=== PATIENT | male | born 1980 | race Caucasian/White ===

== ENCOUNTER 2020-12-30 11:26 | Emergency (ER) | payer OTHER ==
[~2020-12-30] VITALS: Ht 177.8 cm; Wt 81.6 kg
--- NOTE | 2020-12-30 11:52 | NUR ---
"I want to go [place] but I was told to come here. Im Having a lot of Anxiety and Panic Attacks", to ER bed 13, hooked to monitor, changed to hosp gown, warm blanket provided. awaiting MD francis. sitter at bedside for safety
--- NOTE | 2020-12-30 11:55 | NUR ---
Dr Kwon at bedside
[2020-12-30 12:27] LABS: BASOPHILS # (AUTO) 0.2 /CMM (0.0-0.2); BASOPHILS % (AUTO) 2.7 % (0.0-2.0); EOSINOPHILS % (AUTO) 1.8 % (0.0-6.0); HEMATOCRIT 44 % (39-51); HEMOGLOBIN 15.3 g/dL (13.5-17.5); LYMPHOCYTES # (AUTO) 0.9 /CMM (0.8-4.8); LYMPHOCYTES % (AUTO) 12.6 % (20.0-44.0); MEAN CORPUSCULAR HGB CONC 35 g/dl (31.0-36.0); MEAN CORPUSCULAR VOLUME 83 fL (80-96); MONOCYTES # (AUTO) 0.4 /CMM (0.1-1.30); NEUTROPHILS # (AUTO) 5.6 /CMM (1.8-8.9); NEUTROPHILS % (AUTO) 76.9 % (43.0-81.0); PLATELET COUNT (AUTO) 275 /CMM (150-450); RED BLOOD CELL COUNT(AUTO) 5.27 MIL/uL (4.5-6.0); WHITE BLOOD COUNT (AUTO) 7.3 K/uL (4.3-11.0)
[2020-12-30 12:33] LABS: BILIRUBIN,URINE Negative (NEGATIVE); COLOR,URINE YELLOW (YELLOW); LEUKOCYTE ESTERASE ,URINE Negative (NEGATIVE); NITRITE, URINE Negative (NEGATIVE); PH,URINE 5.5 (5.0-8.0); PROTEIN,URINE Negative (NEGATIVE); UGLUCOSE Negative (NEGATIVE); UROBILINOGEN,URINE 0.2 EU/dL (0.2)
[2020-12-30 12:37] LABS: CALCIUM, SERUM 9.7 mg/dL (8.5-10.1); CARBON DIOXIDE 31 mmol/L (21-32); CHLORIDE 103 mmol/L (98-107); GLUCOSE 102 mg/dL (74-106); POTASSIUM 4.1 mmol/L (3.5-5.1); SODIUM SERUM 141 mmol/L (136-145); UREA NITROGEN, BLOOD 15 mg/dL (7-18)
[2020-12-30 12:51] LABS: ALANINE AMINOTRANSFERASE 31 U/L (12-78); ALBUMIN 4.2 g/dL (3.4-5.0); ALCOHOL, BLOOD < 3 mg/dL (0-0); ALKALINE PHOSPHATASE 74 U/L (46-116); ASPARTATE AMINOTRANSFERASE 23 U/L (15-37); BILIRUBIN,DIRECT 0.1 mg/dL (0.0-0.2); BILIRUBIN,TOTAL 0.6 mg/dL (0.2-1.0); TOTAL PROTEIN, SERUM 7.3 g/dL (6.4-8.2)
[2020-12-30 12:52] LABS: ACETAMINOPHEN 0 ug/ml (10-30)
[2020-12-30 12:56] LABS: BACTERIA,URINE Rare /HPF (None Seen); RBC,URINE 0-2 /HPF (0-2); SQUAMOUS EPITHELIAL CELL,UR Rare /HPF (None Seen); WBC,URINE 0-2 /HPF (0-3)
[2020-12-30] MEDS ORDERED: CLONIDINE HCL 0.1 MG TABLET ONE (14:57)
--- NOTE | 2020-12-30 15:17 | NUR ---
RAPID COVID SWAB DONE AND SENT TO LAB
--- NOTE | 2020-12-30 18:55 | NUR ---
CLINICALS FAXED TO [facility].
--- NOTE | 2020-12-30 20:25 | NUR ---
TRANSFER INFORMATION: PT WILL BE TRANSFERRED TO [facility] ACCEPTING MD: DR. HICKEY NUMBER FOR REPORT: [phone] UNIT 2
--- NOTE | 2020-12-30 20:37 | NUR ---
CALLED THE CAR #[phone], WILL CALL BACK FOR AN ETA.
--- NOTE | 2020-12-30 21:11 | NUR ---
[id number] GO [facility] ETA 2345.
--- NOTE | 2020-12-30 21:34 | NUR ---
REPOT GIVEN TO ANDREW DOZIER FROM [facility] FOR [facility]
--- NOTE | 2020-12-30 22:45 | NUR ---
AMBULANCE DELAYED, NEW ETA 0000
[2020-12-31 00:05] VITALS: BP 132/64
--- NOTE | 2020-12-31 00:11 | NUR ---
transport at [facility] report given to emt.
== END 2020-12-31 00:12 ==
LOC: ER 11:42
DX: F32.9 Major depressive disorder, single episode, unspecified (principal); R41.9 Unspecified symptoms and signs involving cognitive functions and awareness; Z20.822 Contact with and (suspected) exposure to COVID-19
CPT/HCPCS: 36415; 80048; 80076; 80299; 80307; 80320; 81001; 85025; 87426; 99285; C9803; G0480

== ENCOUNTER 2021-01-10 12:27 | Emergency (ER) | payer OTHER ==
[~2021-01-10] VITALS: Ht 175.3 cm; Wt 72.6 kg
--- NOTE | 2021-01-10 12:27 | NUR ---
PT BIB SELF C/O DEPRESSION AND ANXIETY. PER PT HE WANTS TO BE ADMITTED AT [facility] FOR PSYCH. PT IS AAOX4, NOT IN RESPIRATORY DISTRESS, V/S STABLE, KEPT RESTED AND COMFORTABLE. WILL CONTINUE TO MONITOR.
--- NOTE | 2021-01-10 12:55 | NUR ---
SEEN AND EXAMINED BY .
--- NOTE | 2021-01-10 13:02 | NUR ---
PHLEB AT BEDSIDE FOR BLOOD DRAW.
--- NOTE | 2021-01-10 13:07 | NUR ---
URINE SPECIMEN COLLECTED AND SENT TO LAB.
[2021-01-10 13:23] LABS: BASOPHILS % (AUTO) 0.1 % (0.0-2.0); EOSINOPHILS % (AUTO) 0.5 % (0.0-6.0); HEMATOCRIT 50 % (39-51); HEMOGLOBIN 16.2 g/dL (13.5-17.5); LYMPHOCYTES # (AUTO) 1.1 /CMM (0.8-4.8); LYMPHOCYTES % (AUTO) 7.4 % (20.0-44.0); MEAN CORPUSCULAR HGB CONC 33 g/dl (31.0-36.0); MEAN CORPUSCULAR VOLUME 86 fL (80-96); MONOCYTES # (AUTO) 0.9 /CMM (0.1-1.30); NEUTROPHILS # (AUTO) 12.3 /CMM (1.8-8.9); PLATELET COUNT (AUTO) 257 /CMM (150-450); WHITE BLOOD COUNT (AUTO) 14.3 K/uL (4.3-11.0)
[2021-01-10 13:28] LABS: BILIRUBIN,URINE NEGATIVE (NEGATIVE); COLOR,URINE DARK YELLOW (YELLOW); LEUKOCYTE ESTERASE ,URINE NEGATIVE (NEGATIVE); NITRITE, URINE NEGATIVE (NEGATIVE); PH,URINE 7.5 (5.0-8.0); PROTEIN,URINE TRACE mg/dl (NEGATIVE); UGLUCOSE NEGATIVE (NEGATIVE); UROBILINOGEN,URINE 0.2 EU/dL (0.2)
[2021-01-10 13:51] LABS: CARBON DIOXIDE 27 mmol/L (21-32); CHLORIDE 102 mmol/L (98-107); GLUCOSE 117 mg/dL (74-106); POTASSIUM 4.8 mmol/L (3.5-5.1); SODIUM SERUM 142 mmol/L (136-145); UREA NITROGEN, BLOOD 23 mg/dL (7-18)
[2021-01-10 13:58] LABS: ALANINE AMINOTRANSFERASE 517 U/L (12-78); ALBUMIN 4.1 g/dL (3.4-5.0); ALCOHOL, BLOOD < 3 mg/dL (0-0); ALKALINE PHOSPHATASE 162 U/L (46-116); ASPARTATE AMINOTRANSFERASE 207 U/L (15-37); BILIRUBIN,DIRECT 0.2 mg/dL (0.0-0.2); BILIRUBIN,TOTAL 0.6 mg/dL (0.2-1.0)
[2021-01-10 13:59] LABS: BACTERIA,URINE Rare /HPF (None Seen); RBC,URINE 0-2 /HPF (0-2); SQUAMOUS EPITHELIAL CELL,UR Rare /HPF (None Seen); WBC,URINE 0-3 /HPF (0-3)
[2021-01-10 14:00] LABS: SPERM,URINE Moderate /HPF (None Seen)
[2021-01-10 14:02] LABS: ACETAMINOPHEN 0 ug/ml (10-30)
[2021-01-10 14:12] LABS: TOTAL PROTEIN, SERUM 7.1 g/dL (6.4-8.2)
--- NOTE | 2021-01-10 14:57 | NUR ---
LAB CALLED PT COVID RESULT NEGATIVE (-).
--- NOTE | 2021-01-10 19:11 | NUR ---
REPORT GIVEN TO ANDREW RAMÍREZ FOR [facility].
--- NOTE | 2021-01-10 19:17 | NUR ---
[facility] CALLED [facility] UND[facility] HICKEY CALL [phone] ÁNGEL FOR REPORT.
--- NOTE | 2021-01-10 19:48 | NUR ---
CALLED CALL THE CAR FOR TRANSPORTATION RESERVATION #[phone]
--- NOTE | 2021-01-10 19:52 | NUR ---
[facility] eta 90min.
[2021-01-10 20:17] VITALS: BP 127/83
--- NOTE | 2021-01-10 20:24 | NUR ---
REPORT GIVEN TO MARY LOU MORALES FROM [facility]
--- NOTE | 2021-01-10 21:49 | NUR ---
[facility] DELAYED UNTIL 2300
--- NOTE | 2021-01-11 00:26 | NUR ---
REPORT GIVEN TO EMT, PT TRANSFERED.
== END 2021-01-11 00:27 ==
LOC: ER 12:27
DX: F32.9 Major depressive disorder, single episode, unspecified (principal); F41.8 Other specified anxiety disorders; Z88.2 Allergy status to sulfonamides; Z20.822 Contact with and (suspected) exposure to COVID-19
CPT/HCPCS: 36415; 80048; 80076; 80299; 80307; 80320; 81001; 85025; 87426; 99285; C9803; G0480

== ENCOUNTER 2022-04-02 16:43 | Emergency (ER) | payer OTHER ==
[~2022-04-02] VITALS: Ht 175.3 cm; Wt 93.0 kg
--- NOTE | 2022-04-02 17:00 | NUR ---
BIBS C/O MID-CHEST PRESSURE NON-RADIATING, EPIGASTRIC PAIN, DIZZINESS, NAUSEA, WEAKNESS x 4DAYS. AMBULATORY, AAOX4, IN PAIN 07/28. PLACED ON BED ATTACHED TO [employer]- SINUS RHYTHYM, SATURATING AT 98%
--- NOTE | 2022-04-02 17:15 | NUR ---
AT BED SIDE
--- NOTE | 2022-04-02 17:20 | NUR ---
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
[2022-04-02] MEDS ORDERED: KETOROLAC TROMETHAMINE INJ 30 MG/ML VIAL IV ONE (18:00)
[2022-04-02] MEDS ORDERED: ONDANSETRON HCL/PF 4 MG/2 ML VIAL IVP ONE (18:00)
[2022-04-02] MEDS ORDERED: IV NS 0.9% 1,000 ML BAG IV ONE (18:00)
[2022-04-02 18:18] LABS: BASOPHILS # (AUTO) 0.1 K/uL (0.0-0.2); BASOPHILS % (AUTO) 0.8 % (0.0-2.0); EOSINOPHILS % (AUTO) 3.4 % (0.0-6.0); HEMATOCRIT 44 % (39-51); LYMPHOCYTES # (AUTO) 1.8 K/uL (0.8-4.8); LYMPHOCYTES % (AUTO) 25.1 % (20.0-44.0); MEAN CORPUSCULAR HGB CONC 34 g/dl (31.0-36.0); MEAN CORPUSCULAR VOLUME 82 fL (80-96); MONOCYTES # (AUTO) 0.4 K/uL (0.1-1.30); MONOCYTES % (AUTO) 6.1 % (2.0-12.0); NEUTROPHILS # (AUTO) 4.7 K/uL (1.8-8.9); NEUTROPHILS % (AUTO) 64.6 % (43.0-81.0); PLATELET COUNT (AUTO) 256 K/uL (150-450); RED BLOOD CELL COUNT(AUTO) 5.36 MIL/uL (4.5-6.0); WHITE BLOOD COUNT (AUTO) 7.3 K/uL (4.3-11.0)
[2022-04-02 18:32] LABS: CARBON DIOXIDE 32 mmol/L (21-32); CHLORIDE 104 mmol/L (98-107); GLUCOSE 96 mg/dL (74-106); POTASSIUM 4.5 mmol/L (3.5-5.1); SODIUM SERUM 141 mmol/L (136-145); UREA NITROGEN, BLOOD 17 mg/dL (7-18)
[2022-04-02] MEDS ORDERED: ONDANSETRON HCL/PF 4 MG/2 ML VIAL ONE ×2 (18:35→18:50)
[2022-04-02] MEDS ORDERED: KETOROLAC TROMETHAMINE INJ 30 MG/ML VIAL ONE ×2 (18:35→18:50)
[2022-04-02 18:38] LABS: ALANINE AMINOTRANSFERASE 46 U/L (12-78); ALBUMIN 4.1 g/dL (3.4-5.0); ALKALINE PHOSPHATASE 123 U/L (46-116); ASPARTATE AMINOTRANSFERASE 29 U/L (15-37); BILIRUBIN,DIRECT 0.1 mg/dL (0.0-0.2); BILIRUBIN,TOTAL 0.4 mg/dL (0.2-1.0); TOTAL PROTEIN, SERUM 7.3 g/dL (6.4-8.2)
[2022-04-02] MEDS ORDERED: MAG HYDROX/AL HYDROX/SIMETH 30 ML UDC ONE (18:50)
[2022-04-02] MEDS ORDERED: FAMOTIDINE/PF INJ 20 MG/2 ML VIAL IV ONE ×2 (18:51→19:00)
[2022-04-02] MEDS ORDERED: MAG HYDROX/AL HYDROX/SIMETH 30 ML UDC PO ONE (19:00)
[2022-04-02 21:59] LABS: BILIRUBIN,URINE NEGATIVE (NEGATIVE); COLOR,URINE YELLOW (YELLOW); LEUKOCYTE ESTERASE ,URINE NEGATIVE (NEGATIVE); NITRITE, URINE NEGATIVE (NEGATIVE); PH,URINE 6.5 (5.0-8.0); PROTEIN,URINE NEGATIVE (NEGATIVE); UGLUCOSE NEGATIVE (NEGATIVE)
[2022-04-02] MEDS ORDERED: ONDA4TAB5 PO (22:41)
[2022-04-02 22:59] VITALS: BP 123/80
--- NOTE | 2022-04-02 22:59 | NUR ---
Patient discharged to home in stable condition. Written and verbal after care instructions given. Patient verbalizes understanding of instruction.
== END 2022-04-02 22:59 | disposition home or self-care (01) ==
LOC: ER 16:50
DX: R07.89 Other chest pain (principal); R10.13 Epigastric pain; R11.0 Nausea; F41.9 Anxiety disorder, unspecified; I10 Essential (primary) hypertension; Z90.89 Acquired absence of other organs; Z88.2 Allergy status to sulfonamides; Z79.899 Other long term (current) drug therapy
CPT/HCPCS: 36415; 71045; 80048; 80076; 81003; 84484 ×2; 85025; 93005 ×2; 96361; 96374; 96375; 99285; J1885; J2405; J3490; J7030

== ENCOUNTER 2022-06-23 14:52 | Emergency (ER) | payer OTHER ==
[~2022-06-23] VITALS: Ht 177.8 cm; Wt 93.0 kg
[~2022-06-23 14:52] MED LIST: ONDA4TAB5 PO
--- NOTE | 2022-06-23 15:32 | NUR ---
BIBS C/O HEAD PRESSURE SINCE SATURDAY WORSE AFTER EATING, ALSO C/O BLURRED VISION, VISUAL CUITY 20/25 RIGHT/LEFT AND BOTH UPON ARRIVAL. AMBULATORY, PLACED ON BED, AAOX4, BREATHING EVEN AND UNLABORED SATURATING AT 99%RA, BP-129/88, [place]-72
--- NOTE | 2022-06-23 16:40 | NUR ---
BLOCK CHOPPER HAND AT BED SIDE
--- NOTE | 2022-06-23 16:45 | NUR ---
Bubba ren in [facility] - 06/23/22 at 1649 by SABIHA BLOOD DRAWN AND SENT TO LAB
--- NOTE | 2022-06-23 16:48 | NUR ---
Bubba ren in [facility] - 06/23/22 at 1649 by SABIHA SWAB FOR COVID19 SENT TO LAB
[2022-06-23] MEDS ORDERED: diphenhydrAMINE HCL 50 MG/ML VIAL ONE (16:54)
[2022-06-23] MEDS ORDERED: KETOROLAC TROMETHAMINE 15 MG/ML VIAL ONE (16:55)
[2022-06-23] MEDS ORDERED: METOCLOPRAMIDE HCL 10 MG/2 ML VIAL ONE (16:55)
[2022-06-23 16:56] LABS: BASOPHILS % (AUTO) 0.1 % (0.0-2.0); EOSINOPHILS % (AUTO) 2.6 % (0.0-6.0); HEMATOCRIT 44 % (39-51); HEMOGLOBIN 14.9 g/dL (13.5-17.5); LYMPHOCYTES # (AUTO) 1.9 K/uL (0.8-4.8); LYMPHOCYTES % (AUTO) 22.7 % (20.0-44.0); MEAN CORPUSCULAR HGB CONC 34 g/dl (31.0-36.0); MEAN CORPUSCULAR VOLUME 83 fL (80-96); MONOCYTES # (AUTO) 0.5 K/uL (0.1-1.30); MONOCYTES % (AUTO) 6.3 % (2.0-12.0); NEUTROPHILS # (AUTO) 5.7 K/uL (1.8-8.9); NEUTROPHILS % (AUTO) 68.3 % (43.0-81.0); PLATELET COUNT (AUTO) 247 K/uL (150-450); RED BLOOD CELL COUNT(AUTO) 5.34 MIL/uL (4.5-6.0); WHITE BLOOD COUNT (AUTO) 8.4 K/uL (4.3-11.0)
[2022-06-23] MEDS ORDERED: diphenhydrAMINE HCL 50 MG/ML VIAL IV ONE (17:00)
[2022-06-23] MEDS ORDERED: KETOROLAC TROMETHAMINE INJ 30 MG/ML VIAL IV ONE (17:00)
[2022-06-23] MEDS ORDERED: METOCLOPRAMIDE HCL 10 MG/2 ML VIAL IV ONE (17:00)
[2022-06-23] MEDS ORDERED: IV NS 0.9% 1,000 ML BAG IV ONE (17:00)
[2022-06-23 17:10] LABS: CREATININE 0.9 mg/dL (0.6-1.3); POTASSIUM 4.4 mmol/L (3.5-5.1)
[2022-06-23] MEDS ORDERED: IBUP-1955 PO (18:10)
--- NOTE | 2022-06-23 18:20 | NUR ---
IV removed. Catheter intact and site benign. Pressure and 4x4 applied to site. No bleeding noted.Patient discharged to home in stable condition. Written and verbal after care instructions given. Patient verbalizes understanding of instruction.
[2022-06-23 18:34] VITALS: BP 110/75
== END 2022-06-23 18:20 | disposition home or self-care (01) ==
LOC: ER 14:58
DX: R51.9 Headache, unspecified (principal); R53.83 Other fatigue; M79.10 Myalgia, unspecified site; I10 Essential (primary) hypertension; F41.9 Anxiety disorder, unspecified; Z90.89 Acquired absence of other organs; Z88.2 Allergy status to sulfonamides; Z60.2 Problems related to living alone
CPT/HCPCS: 99284; 96374; 96375; 96361; 93005; 85025; 80048; 36415; J1200; J2765; J7030; J1885